=== PATIENT | female | born 1960 | race Caucasian/White ===

== ENCOUNTER 2016-05-16 08:09 | Day surgery (SDC) | payer OTHER ==
[~2016-05-16] VITALS: Ht 152.4 cm; Wt 64.3 kg
[2016-05-16] MEDS ORDERED: ASPI81TA3 PO (08:58)
[2016-05-16] MEDS ORDERED: ATOR20TA65 PO (08:58)
[2016-05-16] MEDS ORDERED: LANT3I SC (08:58)
[2016-05-16] MEDS ORDERED: LOSA1TAB19 PO (08:58)
[2016-05-16] MEDS ORDERED: METF500T4 PO (08:58)
[2016-05-16 09:18] VITALS: BP 129/61; PULSE 67; RESP 13
[2016-05-16] MEDS ORDERED: MIDAZOLAM 1 MG/ML 2 ML INJ ONE ×2 (10:05)
[2016-05-16] MEDS ORDERED: FENTAnyl 50 MCG/ML VIAL ONE (10:05)
[2016-05-16 10:35] VITALS: BP 142/83; RESP 20
--- NOTE | 2016-05-16 23:04 | GILP ---
DATE OF PROCEDURE: NAME OF PROCEDURE: Colonoscopy. SURGEON: Ayaka Magdaleno MD PREOPERATIVE DIAGNOSIS: Screening colonoscopy. POSTOPERATIVE DIAGNOSES: Poor preparation, making the exam incomplete and inadequate. INDICATION FOR THE PROCEDURE: Ms. Prema Tristan is a 55-year-old female patient who was scheduled for screening colonoscopy. The procedure and possible complications were well explained to the patient. The patient understood and consented to the procedure. DESCRIPTION OF PROCEDURE: Under the influence of fentanyl and Versed, the colonoscope was carefully introduced in the rectum, and under direct vision, it was advanced all the way to the cecum. FINDINGS: The patient had poor prep, making the exam incomplete and inadequate. The patient was no nely to have hemorrhoids. She tolerated the procedure very well. There was no complication from the procedure. At the end of the procedure, she was awake with stable vital signs, and she was discharged [facility]. IMPRESSION: Poor preparation, making the exam incomplete and inadequate. PLAN: The patient will need repeat colonoscopy with better preparation. Dictated By: AYAKA JOHNSON/LYNSEY Conf#: [id number] DID#: [id number]
== END 2016-05-16 10:16 | disposition home or self-care (01) ==
LOC: GIL 08:09
PROVIDERS: ATTEND Internal Medicine Gastroenterology
DX: Z12.11 Encounter for screening for malignant neoplasm of colon (principal); E11.9 Type 2 diabetes mellitus without complications
CPT/HCPCS: 45378; 82962; J2250; J3010; Z7610